=== PATIENT | male | born 1995 | race African-American/Black ===

== ENCOUNTER 2017-03-07 20:12 | Emergency (ER) | payer MEDICAID, OTHER ==
[~2017-03-07] VITALS: Ht 195.6 cm; Wt 88.0 kg
[2017-03-07] MEDS ORDERED: KETOROLAC 60MG/2ML VIAL IM ONE (21:15)
[2017-03-07 21:20] VITALS: BP 131/80
== END 2017-03-07 21:30 | disposition home or self-care (01) ==
LOC: ER 20:12
DX: K04.7 Periapical abscess without sinus (principal); K02.9 Dental caries, unspecified; Z91.018 Allergy to other foods
CPT/HCPCS: 96372; 99283; J1885

== ENCOUNTER 2017-03-08 10:50 | Emergency (ER) | payer MEDICAID ==
[~2017-03-08] VITALS: Ht 182.9 cm; Wt 86.0 kg
[2017-03-08 12:52] VITALS: BP 11/69
== END 2017-03-08 13:27 | disposition home or self-care (01) ==
LOC: ER 13:21
DX: S12.110A Anterior displaced Type II dens fracture, initial encounter for closed fracture (principal); K02.9 Dental caries, unspecified; X58.XXXA Exposure to other specified factors, initial encounter; Y93.89 Activity, other specified; Y92.89 Other specified places as the place of occurrence of the external cause; Y99.8 Other external cause status; Z91.010 Allergy to peanuts; Z91.012 Allergy to eggs; Z91.013 Allergy to seafood; Z91.018 Allergy to other foods
CPT/HCPCS: 99281

== ENCOUNTER 2018-07-07 23:05 | Emergency (ER) | payer MEDICAID ==
[~2018-07-07] VITALS: Ht 185.4 cm; Wt 91.0 kg
[2018-07-08 00:47] VITALS: BP 122/64
== END 2018-07-08 00:30 | disposition home or self-care (01) ==
LOC: ER 23:05
DX: T78.40XA Allergy, unspecified, initial encounter (principal); J06.9 Acute upper respiratory infection, unspecified; X58.XXXA Exposure to other specified factors, initial encounter; Z91.018 Allergy to other foods
CPT/HCPCS: 99282

== ENCOUNTER 2021-09-18 23:40 | Emergency (ER) | payer MEDICAID, OTHER ==
[~2021-09-18] VITALS: Ht 182.9 cm; Wt 91.6 kg
[2021-09-18 23:51] VITALS: BP 122/46
== END 2021-09-19 01:25 | disposition home or self-care (01) ==
LOC: ER 23:40
DX: S63.641A Sprain of metacarpophalangeal joint of right thumb, initial encounter (principal); S93.491A Sprain of other ligament of right ankle, initial encounter; X50.1XXA Overexertion from prolonged static or awkward postures, initial encounter; Y93.89 Activity, other specified; Y92.9 Unspecified place or not applicable; Z91.010 Allergy to peanuts; Z91.012 Allergy to eggs; Z91.013 Allergy to seafood; Z91.018 Allergy to other foods
CPT/HCPCS: 73130; 73610; 99284

== ENCOUNTER 2023-06-15 14:17 | Emergency (ER) | payer MEDICAID, OTHER ==
[~2023-06-15] VITALS: Ht 185.4 cm; Wt 100.7 kg
[2023-06-15 14:22] VITALS: BP 117/55; PULSE 112; RESP 20; TEMP 100.6; O2SAT 100
[2023-06-15] MEDS ORDERED: DIPHENHYDRAMINE 50MG/ML VIAL IM PRN (14:30)
[2023-06-15] MEDS ORDERED: FAMOTIDINE 20MG TABLET PO SCH (14:30)
[2023-06-15] MEDS ORDERED: PREDNISONE 20MG TABLET PO ONE (14:30)
[2023-06-15 15:36] LABS: HEMATOCRIT. 41.1 % (42.0-52.0); HEMOGLOBIN. 13.4 g/dL (14.0-18.0); MEAN CORPUSCULAR HEMOGLOBIN 26.5 pg (28.0-32.0); MEAN CORPUSCULAR HGB CONC 32.6 g/dL (31.0-37.0); MEAN CORPUSCULAR VOLUME 81.2 fL (80.0-94.0); MEAN PLATELET VOLUME 10.2 fl (7.4-10.4); PLATELET 216 x1000/uL (130-400); RED BLOOD CELL COUNT 5.06 mill/uL (4.7-6.1); RED CELL DISTRIBUTION WIDTH 13.9 % (11.6-14.6); WHITE BLOOD COUNT 15.2 x1000/uL (4.5-11.0)
[2023-06-15 15:43] LABS: DIFFERENTIAL COMMENT 1
[2023-06-15 15:48] LABS: ALANINE AMINOTRANSFERASE 34 IU/L (10-49); ALBUMIN 4.4 g/dL (3.2-4.8); ASPARTATE AMINOTRANSFERASE 26 IU/L (<34); BILIRUBIN TOTAL 0.6 mg/dL (0.1-1.0); CALCIUM 9.6 mg/dL (8.7-10.4); CARBON DIOXIDE 24 mEq/L (21-32); CHLORIDE 104 mEq/L (98-107); GLUCOSE 89 mg/dL (70-105); POTASSIUM 3.8 mEq/L (3.5-5.1); PROTEIN TOTAL 8.3 g/dL (6.0-8.3); SODIUM 137 mEq/L (136-145); UREA NITROGEN BLOOD 12 mg/dL (9-23)
[2023-06-15 15:49] LABS: TROPONIN I HIGH SENSITIVITY < 4 ng/L (3.0-53)
[2023-06-15 16:00] LABS: ATYPICAL LYMPHOCYTES 2; PLATELET ESTIMATE NORMAL
[2023-06-15] MEDS ORDERED: ACETAMINOPHEN 325MG TABLET PO NR (19:09)
== END 2023-06-15 21:08 | disposition home or self-care (01) ==
LOC: ER 16:38
DX: B34.9 Viral infection, unspecified (principal); Z91.013 Allergy to seafood; Z91.010 Allergy to peanuts; Z88.8 Allergy status to other drugs, medicaments and biological substances; Z91.012 Allergy to eggs
CPT/HCPCS: 80053; 83690; 85025; 84484; 36415; 71045; 99284; Z7610 ×2